=== PATIENT | male | born 1955 | race African-American/Black ===

== ENCOUNTER 2021-04-26 11:32 | Inpatient (IN) | payer MEDICAID ==
[~2021-04-26] VITALS: Ht 180.3 cm; Wt 83.0 kg
[2021-04-26 13:02] LABS: CHLORIDE 102 mEq/L (98-107)
[2021-04-26 13:08] LABS: HEMATOCRIT. 28.2 % (42.0-52.0); HEMOGLOBIN. 9.7 g/dL (14.0-18.0); MEAN CORPUSCULAR VOLUME 87.2 fL (80.0-94.0); MEAN PLATELET VOLUME 10.4 fl (7.4-10.4); PLATELET 308 x1000/uL (130-400); RED BLOOD CELL COUNT 3.24 mill/uL (4.7-6.1); RED CELL DISTRIBUTION WIDTH 15.4 % (11.6-14.6)
[2021-04-26] MEDS ORDERED: MORPHINE SULFATE 4 MG/ML CPJ (NOT FOR IM USE) IV ONE (13:30)
[2021-04-26] MEDS ORDERED: METRONIDAZOLE 500 MG PREMIX 100 ML IV ONE (13:30)
[2021-04-26] MEDS ORDERED: CEFTRIAXONE 1 G PREMIX 50 ML IV ONE (13:30)
[2021-04-26] MEDS ORDERED: SODIUM CHLORIDE 0.9% 1,000 ML IV ONE (14:45)
[2021-04-26 15:10] LABS: PLATELET ESTIMATE NORMAL
[2021-04-26] MEDS ORDERED: SODIUM CHLORIDE 0.9% 1,000 ML IV SCH (17:15)
[2021-04-26] MEDS ORDERED: PIPERACILLIN/TAZ 3.375G PREMIX 50 ML IV SCH ×2 (17:15→17:45)
[2021-04-26] MEDS ORDERED: DEXT 5%/0.9% NACL 1,000 ML IV ONE (18:00)
[2021-04-26] MEDS ORDERED: METRONIDAZOLE 500 MG PREMIX 100 ML IV NR (20:30)
[2021-04-26] MEDS ORDERED: MORPHINE SULFATE 4 MG/ML CPJ (NOT FOR IM USE) IV NR (20:30)
[2021-04-27] VITALS (7 sets, daily range): BP systolic 121–172; BP diastolic 69–80
[2021-04-27] MEDS ORDERED: PIPERACILLIN/TAZOBACTAM 3.375 G in DEXTROSE 5% WATER 50 ML IV SCH (09:00)
[2021-04-27 09:56] LABS: INR 1.9; PROTHROMBIN TIME 19.3 sec (9.6-11.0)
[2021-04-27] MEDS ORDERED: PHYTONADIONE 10MG/ML AMP SUBCUT SCH (10:39)
[2021-04-27] MEDS ORDERED: LIDOCAINE HCL 1% 20ML VIAL (Pyxis) INJ ONE (11:00)
[2021-04-27] MEDS ORDERED: IOHEXOL-300 100 ML BOTTLE ONE (11:00)
[2021-04-27 11:01] LABS: INR 1.9; PROTHROMBIN TIME 19.3 sec (9.6-11.0)
[2021-04-27] MEDS ORDERED: PROPOFOL 200MG/20ML VIAL IV ONE ×2 (11:49→12:38)
[2021-04-27] MEDS ORDERED: FENTANYL CITRATE/PF 50MCG/ML 2ML VIAL ONE ×2 (11:49→12:46)
[2021-04-27] MEDS ORDERED: ONDANSETRON HCL 4MG/2ML INJ ONE (11:49)
[2021-04-27] MEDS ORDERED: DEXAMETHASONE 4MG/ML 1ML VIAL ONE (11:49)
[2021-04-27] MEDS ORDERED: MIDAZOLAM HCL 2 MG/2 ML VIAL ONE ×2 (11:49→12:47)
[2021-04-27] MEDS ORDERED: LABETALOL 5MG/ML SYR 20 MG/4 ML SYRINGE IV PRN (12:00)
[2021-04-27] MEDS ORDERED: HYDROMORPHONE HCL/PF 2MG/ML CPJ IV PRN (12:00)
[2021-04-27] MEDS ORDERED: MEPERIDINE HCL/PF 25MG/ML CPJ IV PRN (12:00)
[2021-04-27] MEDS ORDERED: ONDANSETRON HCL 4MG/2ML INJ IV PRN (12:00)
[2021-04-27] MEDS ORDERED: DOCUSATE SODIUM 100MG CAPSULE PO PRN (15:15)
[2021-04-27] MEDS ORDERED: MAGNESIUM/ALUMINUM HYDROXIDE/SIMETHICONE 30ML UDC PO PRN (15:15)
[2021-04-27] MEDS ORDERED: ENOXAPARIN 40MG/0.4ML SYR SUBCUT SCH (15:15)
[2021-04-27] MEDS ORDERED: INFLUENZA VACCINE 05/PF 0.5 ML SYRINGE IM ONE (16:07)
[2021-04-27] MEDS: DEXT 5%/0.9% NACL 1,000 ML IV SCH (16:12)
[2021-04-27] MEDS: CLONIDINE 0.1MG TABLET PO PRN (17:22)
[2021-04-27] MEDS: PIPERACILLIN/TAZOBACTAM 3.375 G in DEXTROSE 5% WATER 50 ML IV SCH (17:42)
[2021-04-27 19:04] LABS: HEMATOCRIT 26.2 % (42.0-52.0); HEMOGLOBIN 8.8 g/dL (14.0-18.0)
[2021-04-27 19:18] LABS: CHLORIDE 108 mEq/L (98-107)
[2021-04-27 19:38] LABS: CREATINE KINASE 1022 IU/L (39-308)
[2021-04-27 19:46] LABS: HEPATITIS B SURFACE ANTIGEN NEGATIVE
[2021-04-27 20:18] LABS: CLARITY URINE CLOUDY (CLEAR); COLOR URINE DARK YELLOW (YELLOW); KETONES URINE NEGATIVE (NEGATIVE); LEUKOCYTE ESTERASE URINE NEGATIVE (NEGATIVE); NITRITE URINE NEGATIVE (NEGATIVE); OCCULT BLOOD URINE 1+ (NEGATIVE); PH URINE 5.5 (4.5-8.0); PROTEIN URINE 1+ (NEGATIVE); SPECIFIC GRAVITY URINE 1.012 (1.005-1.030); UROBILINOGEN URINE 0.2 E.U./dL (0.2-1.0)
[2021-04-27] MEDS: ACETAMINOPHEN 325MG TABLET PO PRN (22:13)
[2021-04-28] VITALS (14 sets, daily range): BP systolic 118–155; BP diastolic 63–87
[2021-04-28] MEDS: PIPERACILLIN/TAZOBACTAM 3.375 G in DEXTROSE 5% WATER 50 ML IV SCH ×3 (00:07→14:34)
[2021-04-28] MEDS: PHYTONADIONE 10MG/ML AMP SUBCUT SCH ×2 (08:47→09:00)
[2021-04-28] MEDS: ENOXAPARIN 30MG/0.3ML SYR SUBCUT SCH (08:49)
[2021-04-28 09:15] LABS: HEMATOCRIT. 21.2 % (42.0-52.0); HEMOGLOBIN. 7.3 g/dL (14.0-18.0); MEAN CORPUSCULAR HEMOGLOBIN 30.3 pg (28.0-32.0); MEAN CORPUSCULAR VOLUME 88.5 fL (80.0-94.0); PLATELET 235 x1000/uL (130-400); RED BLOOD CELL COUNT 2.39 mill/uL (4.7-6.1)
[2021-04-28 09:21] LABS: CHLORIDE 107 mEq/L (98-107)
[2021-04-28 09:28] LABS: PHOSPHORUS 3.6 mg/dL (2.5-4.9)
[2021-04-28] MEDS: DEXT 5%/0.9% NACL 1,000 ML IV SCH (14:34)
[2021-04-29 00:20] VITALS: BP 129/76
[2021-04-29] MEDS: DEXT 5%/0.9% NACL 1,000 ML IV SCH ×3 (01:55→21:33)
[2021-04-29] MEDS: PIPERACILLIN/TAZOBACTAM 3.375 G in DEXTROSE 5% WATER 50 ML IV SCH ×4 (01:55→21:47)
[2021-04-29 04:00] VITALS: BP 131/84
[2021-04-29] MEDS: ENOXAPARIN 30MG/0.3ML SYR SUBCUT SCH (09:07)
[2021-04-29] MEDS: PHYTONADIONE 10MG/ML AMP SUBCUT SCH (09:08)
[2021-04-29 09:41] LABS: PLATELET ESTIMATE NORMAL
[2021-04-29 11:06] LABS: HEMATOCRIT. 27.2 % (42.0-52.0); HEMOGLOBIN. 9.2 g/dL (14.0-18.0); MEAN CORPUSCULAR HEMOGLOBIN 29.6 pg (28.0-32.0); MEAN CORPUSCULAR VOLUME 87.5 fL (80.0-94.0); MEAN PLATELET VOLUME 10.6 fl (7.4-10.4); PLATELET 250 x1000/uL (130-400); RED BLOOD CELL COUNT 3.11 mill/uL (4.7-6.1); RED CELL DISTRIBUTION WIDTH 15.4 % (11.6-14.6)
[2021-04-29 11:19] LABS: CHLORIDE 102 mEq/L (98-107)
[2021-04-29 11:28] LABS: PHOSPHORUS 2.2 mg/dL (2.5-4.9)
[2021-04-29 11:43] LABS: PROTHROMBIN TIME 10.9 sec (9.6-11.0)
[2021-04-29 12:00] VITALS: BP 131/86
[2021-04-29 12:27] LABS: PLATELET ESTIMATE NORMAL
[2021-04-29 20:00] VITALS: BP 130/76
[2021-04-30 04:00] VITALS: BP 136/82
[2021-04-30] MEDS: PIPERACILLIN/TAZOBACTAM 3.375 G in DEXTROSE 5% WATER 50 ML IV SCH ×2 (05:24→13:54)
[2021-04-30 08:00] VITALS: BP_SYST 118; BP_SYST 131; BP_DIAS 78; BP_DIAS 86
[2021-04-30] MEDS: ENOXAPARIN 30MG/0.3ML SYR SUBCUT SCH (08:59)
[2021-04-30 11:23] LABS: HEMATOCRIT. 28.4 % (42.0-52.0); HEMOGLOBIN. 9.6 g/dL (14.0-18.0); MEAN CORPUSCULAR HEMOGLOBIN 29.9 pg (28.0-32.0); MEAN CORPUSCULAR VOLUME 88.6 fL (80.0-94.0); MEAN PLATELET VOLUME 10.4 fl (7.4-10.4); PLATELET 262 x1000/uL (130-400); RED CELL DISTRIBUTION WIDTH 15.5 % (11.6-14.6)
[2021-04-30 11:42] LABS: PHOSPHORUS 3.3 mg/dL (2.5-4.9)
[2021-04-30 12:00] VITALS: BP 121/79
[2021-04-30] MEDS ORDERED: POTASSIUM CHLORIDE 20MEQ TABLET SR PO NR (15:00)
[2021-04-30 16:00] VITALS: BP 132/87
[2021-04-30] MEDS: DEXT 5%/0.9% NACL 1,000 ML IV SCH (16:14)
[2021-04-30 17:40] LABS: PLATELET ESTIMATE NORMAL
[2021-04-30 20:00] VITALS: BP 118/84
[2021-05-01 04:00] VITALS: BP 119/82
[2021-05-01] MEDS: PIPERACILLIN/TAZOBACTAM 3.375 G in DEXTROSE 5% WATER 50 ML IV SCH ×4 (05:23→22:46)
[2021-05-01 07:23] LABS: PHOSPHORUS 4.1 mg/dL (2.5-4.9)
[2021-05-01 08:00] VITALS: BP 145/85
[2021-05-01] MEDS: ENOXAPARIN 30MG/0.3ML SYR SUBCUT SCH (08:14)
[2021-05-01 08:19] LABS: HEMATOCRIT. 29.1 % (42.0-52.0); HEMOGLOBIN. 10.1 g/dL (14.0-18.0); MEAN CORPUSCULAR HEMOGLOBIN 30.5 pg (28.0-32.0); MEAN CORPUSCULAR VOLUME 88.1 fL (80.0-94.0); MEAN PLATELET VOLUME 10.7 fl (7.4-10.4); PLATELET 265 x1000/uL (130-400)
[2021-05-01] MEDS ORDERED: SODIUM CHLORIDE 0.9% 1,000 ML IV SCH (10:45)
[2021-05-01] MEDS ORDERED: SODIUM BICARBONATE 8.4% 1 MEQ/ML 50ML SYR IV NR (10:45)
[2021-05-01] MEDS ORDERED: SODIUM CHLORIDE 0.9% 1000ML BAG (SEPSIS BOLUS) IV NR (11:00)
[2021-05-01 12:00] VITALS: BP 147/87
[2021-05-01] MEDS ORDERED: SODIUM BICARBONATE 150 MEQ in DEXTROSE 5% WATER 1,000 ML IV SCH (12:00)
[2021-05-01 14:43] LABS: BG BASE EXCESS -3.3 mmol/L (-2.0-2.0); BG CARBOXYHEMOGLOBIN 0.1 % (0.5-1.5); BG DEOXYHEMOGLOBIN 2.4 % (0.0-5.0); BG FRACTION INSPIRED OXYGEN 21; BG HCO3 ACT 20.1 mmol/L (22.0-26.0); BG METHEMOGLOBIN 0.1 % (0.0-1.5); BG OXYGEN SATURATION 97.6 % (92.0-98.5); BG OXYHEMOGLOBIN 97.4 % (94.0-97.0); BG PCO2 30.9 mmHg (35.0-45.0); BG PH 7.432 (7.350-7.450); BG PO2 101.1 mmHg (75.0-100.0); BG SAMPLE SITE RIGHT RADIAL; BG TOTAL HEMOGLOBIN 11.5 g/dL (12.0-18.0); BG VENT MODE ROOM AIR
[2021-05-01 16:00] VITALS: BP_SYST 128; BP_SYST 145; BP_DIAS 78; BP_DIAS 85
[2021-05-01] MEDS: DEXT 5%/0.9% NACL 1,000 ML IV SCH ×2 (16:21→20:57)
[2021-05-01 17:51] LABS: PLATELET ESTIMATE NORMAL
[2021-05-01] MEDS ORDERED: POTASSIUM CHLORIDE INJ 40 MEQ in DEXT 5% WATER 250 ML IV ONE (18:00)
[2021-05-01 20:00] VITALS: BP 116/68
[2021-05-01] MEDS: KCL 20MEQ/100ML PREMIX 100 ML IV SCH ×2 (20:57→23:38)
[2021-05-02] MEDS: DEXT 5%/0.9% NACL 1,000 ML IV SCH ×5 (02:41→21:24)
[2021-05-02 04:00] VITALS: BP 140/82
[2021-05-02 07:43] LABS: HEMATOCRIT. 26.4 % (42.0-52.0); HEMOGLOBIN. 9.1 g/dL (14.0-18.0); MEAN CORPUSCULAR HEMOGLOBIN 30.5 pg (28.0-32.0); MEAN CORPUSCULAR VOLUME 87.9 fL (80.0-94.0); MEAN PLATELET VOLUME 10.5 fl (7.4-10.4); PLATELET 268 x1000/uL (130-400); RED CELL DISTRIBUTION WIDTH 14.8 % (11.6-14.6)
[2021-05-02 08:00] VITALS: BP 130/83
[2021-05-02 08:12] LABS: CHLORIDE 99 mEq/L (98-107)
[2021-05-02 08:16] LABS: PHOSPHORUS 5.7 mg/dL (2.5-4.9)
[2021-05-02] MEDS: ENOXAPARIN 30MG/0.3ML SYR SUBCUT SCH ×2 (08:50→08:52)
[2021-05-02] MEDS ORDERED: DIATR MEGLU/DIATRIZOATE SOLN 120ML ONE (11:04)
[2021-05-02 16:00] VITALS: BP 140/95
[2021-05-02 20:00] VITALS: BP 138/89
[2021-05-02 22:12] LABS: PLATELET ESTIMATE NORMAL
[2021-05-03] VITALS: BP 127/81
[2021-05-03] MEDS: DEXT 5%/0.9% NACL 1,000 ML IV SCH ×4 (02:44→18:52)
[2021-05-03 04:00] VITALS: BP 154/71
[2021-05-03 08:00] VITALS: BP 160/71
[2021-05-03 08:07] LABS: HEMATOCRIT. 24.2 % (42.0-52.0); HEMOGLOBIN. 8.4 g/dL (14.0-18.0); MEAN CORPUSCULAR HEMOGLOBIN 30.5 pg (28.0-32.0); MEAN PLATELET VOLUME 10.1 fl (7.4-10.4); PLATELET 289 x1000/uL (130-400); RED BLOOD CELL COUNT 2.75 mill/uL (4.7-6.1); RED CELL DISTRIBUTION WIDTH 14.7 % (11.6-14.6)
[2021-05-03 08:56] LABS: PHOSPHORUS 6.4 mg/dL (2.5-4.9)
[2021-05-03] MEDS: ENOXAPARIN 30MG/0.3ML SYR SUBCUT SCH (09:44)
[2021-05-03 12:00] VITALS: BP 153/84
[2021-05-03 16:00] VITALS: BP 157/78
[2021-05-03 17:00] LABS: PLATELET ESTIMATE NORMAL
[2021-05-03 20:00] VITALS: BP 142/71
[2021-05-04] VITALS (7 sets, daily range): BP systolic 132–153; BP diastolic 73–79
[2021-05-04] MEDS: DEXT 5%/0.9% NACL 1,000 ML IV SCH ×4 (00:10→15:58)
[2021-05-04 07:39] LABS: MEAN CORPUSCULAR VOLUME 89.1 fL (80.0-94.0); MEAN PLATELET VOLUME 10.2 fl (7.4-10.4); PLATELET 244 x1000/uL (130-400); RED BLOOD CELL COUNT 2.26 mill/uL (4.7-6.1); RED CELL DISTRIBUTION WIDTH 14.4 % (11.6-14.6)
[2021-05-04 08:33] LABS: HEMATOCRIT. 20.2 % (42.0-52.0)
[2021-05-04] MEDS: ENOXAPARIN 30MG/0.3ML SYR SUBCUT SCH (09:00)
[2021-05-04 15:27] LABS: PROTHROMBIN TIME 10.5 sec (9.6-11.0)
[2021-05-04 19:09] LABS: BG BASE EXCESS -11.8 mmol/L (-2.0-2.0); BG CARBOXYHEMOGLOBIN 0.2 % (0.5-1.5); BG DEOXYHEMOGLOBIN 3.4 % (0.0-5.0); BG FRACTION INSPIRED OXYGEN 21; BG HCO3 ACT 12.5 mmol/L (22.0-26.0); BG METHEMOGLOBIN 0.4 % (0.0-1.5); BG OXYGEN SATURATION 96.6 % (92.0-98.5); BG PCO2 23.4 mmHg (35.0-45.0); BG PH 7.345 (7.350-7.450); BG PO2 100.9 mmHg (75.0-100.0); BG SAMPLE SITE RIGHT RADIAL; BG TOTAL HEMOGLOBIN 8.6 g/dL (12.0-18.0); BG VENT MODE ROOM AIR
[2021-05-04 20:00] LABS: PLATELET ESTIMATE NORMAL
[2021-05-05 08:00] VITALS: BP 168/89
[2021-05-05 09:02] LABS: HEMATOCRIT. 25.1 % (42.0-52.0); HEMOGLOBIN. 8.7 g/dL (14.0-18.0); MEAN CORPUSCULAR HEMOGLOBIN 31.1 pg (28.0-32.0); MEAN CORPUSCULAR VOLUME 89.8 fL (80.0-94.0); MEAN PLATELET VOLUME 10.8 fl (7.4-10.4); PLATELET 252 x1000/uL (130-400); RED CELL DISTRIBUTION WIDTH 14.6 % (11.6-14.6)
[2021-05-05 09:05] LABS: PROTHROMBIN TIME 10.7 sec (9.6-11.0)
[2021-05-05 12:00] VITALS: BP 176/81
[2021-05-05 14:11] LABS: PLATELET ESTIMATE NORMAL
[2021-05-05 16:00] VITALS: BP 170/88
[2021-05-05 20:00] VITALS: BP 158/84
[2021-05-05] MEDS: DEXT 5%/0.9% NACL 1,000 ML IV SCH (20:09)
[2021-05-06] MEDS: DEXT 5%/0.9% NACL 1,000 ML IV SCH ×2 (02:00→06:55)
[2021-05-06 03:30] VITALS: BP_SYST 172; BP_SYST 174; BP_DIAS 89; BP_DIAS 92
[2021-05-06] MEDS: CLONIDINE 0.1MG TABLET PO PRN ×2 (03:50→12:40)
[2021-05-06] MEDS ORDERED: IOHEXOL-300 50 ML BOTTLE IV ONE (07:31)
[2021-05-06] MEDS ORDERED: LIDOCAINE HCL 1% 20ML VIAL (Pyxis) INJ ONE (07:32)
[2021-05-06] MEDS ORDERED: PIPERACILLIN/TAZOBACTAM 3.375GM/50ML PREMIX IV ONE (07:45)
[2021-05-06] MEDS ORDERED: PIPERACILLIN/TAZOBACTAM 3.375 G in DEXTROSE 5% WATER 50 ML IV SCH (07:45)
[2021-05-06 08:00] VITALS: BP 152/75
[2021-05-06] MEDS ORDERED: SODIUM BICARBONATE 8.4% 1 MEQ/ML 50ML SYR IV ONE (08:15)
[2021-05-06] MEDS ORDERED: GLYCOPYRROLATE 0.2 MG/ML 2ML VIAL ONE (08:23)
[2021-05-06 08:25] LABS: BG BASE EXCESS -10.2 mmol/L (-2.0-2.0); BG CARBOXYHEMOGLOBIN 0.3 % (0.5-1.5); BG DEOXYHEMOGLOBIN 14.7 % (0.0-5.0); BG FRACTION INSPIRED OXYGEN 100; BG HCO3 ACT 14.8 mmol/L (22.0-26.0); BG OXYGEN SATURATION 85.3 % (92.0-98.5); BG PCO2 29.3 mmHg (35.0-45.0); BG PH 7.322 (7.350-7.450); BG PO2 54.2 mmHg (75.0-100.0); BG SAMPLE SITE RIGHT RADIAL; BG TOTAL HEMOGLOBIN 8.3 g/dL (12.0-18.0)
[2021-05-06 08:35] LABS: HEMATOCRIT. 25.2 % (42.0-52.0); HEMOGLOBIN. 8.7 g/dL (14.0-18.0); MEAN CORPUSCULAR VOLUME 90.2 fL (80.0-94.0); MEAN PLATELET VOLUME 10.5 fl (7.4-10.4); PLATELET 250 x1000/uL (130-400); RED CELL DISTRIBUTION WIDTH 14.5 % (11.6-14.6)
[2021-05-06 09:05] LABS: PROTHROMBIN TIME 10.9 sec (9.6-11.0)
[2021-05-06] MEDS ORDERED: ONDANSETRON HCL 4MG/2ML INJ IV PRN (09:30)
[2021-05-06] MEDS ORDERED: HYDROMORPHONE HCL/PF 2MG/ML CPJ IV PRN (09:30)
[2021-05-06] MEDS ORDERED: MEPERIDINE HCL/PF 25MG/ML CPJ IV PRN (09:30)
[2021-05-06] MEDS ORDERED: LABETALOL 5MG/ML SYR 20 MG/4 ML SYRINGE IV PRN (09:30)
[2021-05-06] MEDS ORDERED: HYDRALAZINE 20MG/ML VIAL IV NR (10:22)
[2021-05-06] MEDS ORDERED: POTASSIUM CHLORIDE 20MEQ TABLET SR PO NR (11:45)
[2021-05-06 12:00] VITALS: BP 170/71
[2021-05-06 15:20] LABS: PLATELET ESTIMATE NORMAL
[2021-05-06] MEDS: SODIUM BICARBONATE 100 MEQ in DEXT 5%/0.2% NACL 1,000 ML IV SCH (15:28)
[2021-05-06] MEDS: AMLODIPINE 5MG TABLET PO SCH (15:28)
[2021-05-06 16:00] VITALS: BP 166/82
[2021-05-06 21:28] VITALS: BP 163/76
[2021-05-06] MEDS: CLONIDINE 0.1MG TABLET PO SCH (21:29)
[2021-05-07 03:46] VITALS: BP 146/84
[2021-05-07] MEDS: CLONIDINE 0.1MG TABLET PO SCH ×3 (05:29→22:12)
[2021-05-07 06:58] LABS: BASOPHILS % 0.5 % (0.0-2.0); HEMATOCRIT. 24.3 % (42.0-52.0); HEMOGLOBIN. 8.2 g/dL (14.0-18.0); LYMPHOCYTES % 13.7 % (20.0-50.0); MEAN CORPUSCULAR HEMOGLOBIN 30.2 pg (28.0-32.0); MEAN CORPUSCULAR VOLUME 89.6 fL (80.0-94.0); MEAN PLATELET VOLUME 10.6 fl (7.4-10.4); MONOCYTES % 7.9 % (2.0-8.0); NEUTROPHILS % 76.9 % (40.0-76.0); PLATELET 220 x1000/uL (130-400); RED BLOOD CELL COUNT 2.71 mill/uL (4.7-6.1)
[2021-05-07 07:22] LABS: CHLORIDE 113 mEq/L (98-107)
[2021-05-07 07:30] LABS: PHOSPHORUS 4.2 mg/dL (2.5-4.9)
[2021-05-07 08:00] VITALS: BP 153/88
[2021-05-07] MEDS: AMLODIPINE 5MG TABLET PO SCH (09:06)
[2021-05-07] MEDS: SODIUM BICARBONATE 100 MEQ in DEXT 5%/0.2% NACL 1,000 ML IV SCH (09:13)
[2021-05-07 10:13] LABS: BG CARBOXYHEMOGLOBIN 0.3 % (0.5-1.5); BG DEOXYHEMOGLOBIN 3.5 % (0.0-5.0); BG FRACTION INSPIRED OXYGEN 21; BG HCO3 ACT 20.4 mmol/L (22.0-26.0); BG METHEMOGLOBIN 0.3 % (0.0-1.5); BG OXYGEN SATURATION 96.5 % (92.0-98.5); BG OXYHEMOGLOBIN 95.9 % (94.0-97.0); BG PH 7.451 (7.350-7.450); BG PO2 90.7 mmHg (75.0-100.0); BG SAMPLE SITE RIGHT RADIAL; BG TOTAL HEMOGLOBIN 7.9 g/dL (12.0-18.0); BG VENT MODE ROOM AIR
[2021-05-07] MEDS ORDERED: POTASSIUM CHLORIDE 20MEQ TABLET SR PO NR ×2 (11:45→13:45)
[2021-05-07 11:52] VITALS: BP 139/75
[2021-05-07] MEDS: SODIUM BICARBONATE 50 MEQ in DEXTROSE 5% WATER 1,000 ML IV SCH (15:53)
[2021-05-07 20:00] VITALS: BP 138/78
[2021-05-07 21:12] LABS: PHOSPHORUS 3.4 mg/dL (2.5-4.9)
[2021-05-08] VITALS: BP 136/79
[2021-05-08 04:00] VITALS: BP 140/70
[2021-05-08] MEDS: CLONIDINE 0.1MG TABLET PO SCH ×3 (05:45→22:47)
[2021-05-08] MEDS: SODIUM BICARBONATE 50 MEQ in DEXTROSE 5% WATER 1,000 ML IV SCH ×2 (05:45→22:48)
[2021-05-08 06:48] LABS: BASOPHILS % 0.3 % (0.0-2.0); EOSINOPHILS % 1.1 % (0.0-5.0); HEMATOCRIT. 21.2 % (42.0-52.0); HEMOGLOBIN. 7.2 g/dL (14.0-18.0); LYMPHOCYTES % 11.4 % (20.0-50.0); MEAN CORPUSCULAR HEMOGLOBIN 30.1 pg (28.0-32.0); MEAN CORPUSCULAR VOLUME 89.1 fL (80.0-94.0); MEAN PLATELET VOLUME 10.4 fl (7.4-10.4); MONOCYTES % 11.9 % (2.0-8.0); NEUTROPHILS % 75.3 % (40.0-76.0); PLATELET 186 x1000/uL (130-400); RED BLOOD CELL COUNT 2.38 mill/uL (4.7-6.1); RED CELL DISTRIBUTION WIDTH 14.6 % (11.6-14.6)
[2021-05-08 06:51] LABS: CHLORIDE 111 mEq/L (98-107)
[2021-05-08 07:03] LABS: PHOSPHORUS 3.5 mg/dL (2.5-4.9)
[2021-05-08] MEDS: AMLODIPINE 5MG TABLET PO SCH (10:43)
[2021-05-08 12:00] VITALS: BP 133/81
[2021-05-08] MEDS ORDERED: MAGNESIUM 2 G PREMIX 50 ML IV NR (15:00)
[2021-05-08] MEDS: ACETAMINOPHEN 325MG TABLET PO PRN (19:15)
[2021-05-08 20:00] VITALS: BP 144/83
[2021-05-09] VITALS: BP 147/83
[2021-05-09 04:00] VITALS: BP 150/80
[2021-05-09] MEDS: CLONIDINE 0.1MG TABLET PO SCH ×2 (06:45→13:45)
[2021-05-09 06:59] LABS: BASOPHILS % 0.5 % (0.0-2.0); EOSINOPHILS % 1.1 % (0.0-5.0); HEMATOCRIT. 22.1 % (42.0-52.0); HEMOGLOBIN. 7.7 g/dL (14.0-18.0); LYMPHOCYTES % 12.9 % (20.0-50.0); MEAN CORPUSCULAR HEMOGLOBIN 31.1 pg (28.0-32.0); MEAN CORPUSCULAR VOLUME 89.7 fL (80.0-94.0); MEAN PLATELET VOLUME 10.2 fl (7.4-10.4); MONOCYTES % 10.6 % (2.0-8.0); NEUTROPHILS % 74.9 % (40.0-76.0); PLATELET 190 x1000/uL (130-400); RED BLOOD CELL COUNT 2.47 mill/uL (4.7-6.1); RED CELL DISTRIBUTION WIDTH 14.7 % (11.6-14.6)
[2021-05-09 07:45] LABS: PHOSPHORUS 3.8 mg/dL (2.5-4.9)
[2021-05-09 08:00] VITALS: BP 147/66
[2021-05-09] MEDS: AMLODIPINE 5MG TABLET PO SCH (09:11)
[2021-05-09] MEDS: SODIUM BICARBONATE 50 MEQ in DEXTROSE 5% WATER 1,000 ML IV SCH (09:12)
[2021-05-09] MEDS ORDERED: AMLO5TAB88 PO (10:35)
[2021-05-09] MEDS ORDERED: CLON0.1T PO (10:35)
[2021-05-09 12:48] VITALS: BP 140/79
[2021-05-09 14:41] VITALS: BP 140/79
== END 2021-05-09 16:32 | disposition home or self-care (01) ==
LOC: ER 11:32 → MICUSO 17:23 → 7EST 04-27 14:44 → 6WST 05-07 16:17
PROVIDERS: ADMIT Internal Medicine; ATTEND Internal Medicine
PROC: 0F9530Z Drainage of Right Hepatic Duct with Drainage Device, Percutaneous Approach (ICD-10-PCS; 2021-04-26)
PROC: BF10YZZ Fluoroscopy of Bile Ducts using Other Contrast (ICD-10-PCS; 2021-04-26)
PROC: BF101ZZ Fluoroscopy of Bile Ducts using Low Osmolar Contrast (ICD-10-PCS; 2021-04-27)
PROC: 0FB13ZX Excision of Right Lobe Liver, Percutaneous Approach, Diagnostic (ICD-10-PCS; 2021-04-27)
PROC: 0F9930Z Drainage of Common Bile Duct with Drainage Device, Percutaneous Approach (ICD-10-PCS; 2021-04-27)
PROC: 0FB Hepatobiliary System and Pancreas, Excision (ICD-10-PCS; 2021-04-27)
PROC: 30233K1 Transfusion of Nonautologous Frozen Plasma into Peripheral Vein, Percutaneous Approach (ICD-10-PCS; 2021-04-28)
PROC: 30233N1 Transfusion of Nonautologous Red Blood Cells into Peripheral Vein, Percutaneous Approach (ICD-10-PCS; 2021-05-04)
PROC: 0F793DZ Dilation of Common Bile Duct with Intraluminal Device, Percutaneous Approach (ICD-10-PCS; principal; 2021-05-06)
DX: K83.1 Obstruction of bile duct (principal); J96.00 Acute respiratory failure, unspecified whether with hypoxia or hypercapnia; N17.0 Acute kidney failure with tubular necrosis; U07.1 COVID-19; E87.2 Acidosis; D64.9 Anemia, unspecified; D49.0 Neoplasm of unspecified behavior of digestive system; E88.09 Other disorders of plasma-protein metabolism, not elsewhere classified; K83.09 Other cholangitis; E80.6 Other disorders of bilirubin metabolism; I10 Essential (primary) hypertension; K70.9 Alcoholic liver disease, unspecified; K82.8 Other specified diseases of gallbladder; K86.9 Disease of pancreas, unspecified; K29.70 Gastritis, unspecified, without bleeding; E87.6 Hypokalemia; I12.9 Hypertensive chronic kidney disease with stage 1 through stage 4 chronic kidney disease, or unspecified chronic kidney disease; N18.9 Chronic kidney disease, unspecified; Z68.22 Body mass index [BMI] 22.0-22.9, adult; Z82.49 Family history of ischemic heart disease and other diseases of the circulatory system; N40.0 Benign prostatic hyperplasia without lower urinary tract symptoms
CPT/HCPCS: 36415; 36600; 47534; 71045; 74018; 74181; 74250; 76700; 76770; 77002; 80048; 80053; 80076; 81003; 82270; 82375; 82378; 82550; 82728; 82805; 83615; 83735; 83880; 84100; 84145; 84153; 84484; 85014; 85018; 85025; 85384; 86140; 86301; 86705; 86709; 86803; 86850; 86900; 86920; 86927; 87340; 87426; 87635; 88305; 93005; 93970; 97162; 97166; 99291; C1725; C1760; C1766; C1769; J0360; J1100; J1650; J2175; J2250; J2270; J2405; J2543; J2704; J3010; J3430; J3475; J3480; J3490; J7040; J7042; J7060; J7070; P9016; P9017; Q9963; Q9967; G0103